=== PATIENT | male | born 1965 | race Two or more races ===

== ENCOUNTER 2024-08-08 05:45 | Day surgery (SDC) | payer OTHER ==
[2024-08-08] MEDS ORDERED: fentaNYL CITRATE 50 MCG/ML AMPUL IV PUSH ONE (09:15)
[2024-08-08] MEDS ORDERED: DIPHENHYDRAMINE HCL 50 MG/ML VIAL 1ML IV ONE (09:15)
[2024-08-08] MEDS ORDERED: MIDAZOLAM HCL 2 MG/2 ML VIAL IV ONE (09:15)
== END 2024-08-08 10:00 | disposition home or self-care (01) ==
LOC: AMB-ENDOS 05:45
PROVIDERS: ATTEND Colon & Rectal Surgery
DX: K63.89 Other specified diseases of intestine (principal); Z85.038 Personal history of other malignant neoplasm of large intestine